=== PATIENT | female | born 1955 | race Caucasian/White ===

== ENCOUNTER 2016-12-06 06:27 | Day surgery (SDC) | payer BC ==
[~2016-12-06 06:27] MED LIST: Dextrose 5%-0.45% NaCl 1,000 ML IV SCH; Midazolam 1 MG/ML 2 ML SDV ONE; Sodium Chloride 0.9% 10 ML Syringe FLUSH PRN; fentaNYL 100 MCG/2 ML SDV ONE
[2016-12-06] MEDS ORDERED: fentaNYL 100 MCG/2 ML SDV IV ONE ×3 (07:38→14:55)
[2016-12-06] MEDS ORDERED: Midazolam 1 MG/ML 2 ML SDV IV ONE ×3 (07:39→14:55)
--- NOTE | 2016-12-06 12:23 | LETTER ---
12/06/2016 Brando Guerrero MD [facility] [address] [place] [address], [place] [id number] RE: SAMARIA CAMARGO : [address] Guerrero: Ms. Samaria Saldaña had esophagogastroduodenoscopy done this morning and she tolerated the procedure well. I herewith send a copy of the endoscopy note and photographs for your review. Thank you. Sincerely, [facility] /[id number]
[2016-12-06 12:39] VITALS: BP 113/64
--- NOTE | 2016-12-06 13:11 | OR ---
DATE: 12/06/2016 PROCEDURE: Esophagogastroduodenoscopy and multiple pinch biopsies. INSTRUMENT USED: GIF-H180 Olympus video panendoscope. PREMEDICATIONS: Fentanyl 100 mcg intravenous, Versed 2 mg intravenous. The procedure was done under pulse oximetry, BP recording, and fish worm grower. INDICATION: The patient with chest pain as well as dysphagia, status post LINX placement. Esophagogastroduodenoscopy is performed for detection of any active erosive lesions, H. pylori status to be determined, endoscopic hemostasis therapy if needed. DESCRIPTION OF PROCEDURE: The scope was passed with ease. Adequate visualization of the esophagus was made from proximal to distal areas. No upper esophageal lesions identified. No distal esophageal stricture. No uphill or downhill esophageal varices. No Latonia-Hannah tear. No evidence of erosive esophagitis by [place] criteria. No esophageal polyp or tumor mass identified. Z-line was seen at around 40 cm distal to the oral verge, configuration consistent with grade 1 by ZAP classification. No proximal gastric varices noted. Gastric fundus examination by retroflexion showed no polypoid lesions. No gastric ulcer, malignant mass, or vascular ectasia identified. Patchy erythema with erosions were noted in the gastric antrum. Multiple pinch biopsies were taken from the gastric antrum and proximal body and sent for PyloriTek test for H. pylori, and if negative in an hour, tissue is to be sent for histopathology. Duodenal bulb showed no ulcer. Visualized second part of the duodenum was unremarkable. Photographs were taken of the duodenal bulb, gastric antrum, fundus, and distal esophagus. No bleeding was noted from any of the visualized areas at the completion of examination. IMPRESSION: Gastric antral erosions. The patient tolerated the procedure well. [facility] /[id number]
== END 2016-12-06 09:52 | disposition home or self-care (01) ==
LOC: DL.ENDO 06:27
PROVIDERS: ATTEND Internal Medicine Gastroenterology
DX: K29.50 Unspecified chronic gastritis without bleeding (principal); E66.9 Obesity, unspecified; E78.5 Hyperlipidemia, unspecified; K21.9 Gastro-esophageal reflux disease without esophagitis; R73.9 Hyperglycemia, unspecified; Z90.49 Acquired absence of other specified parts of digestive tract; Z79.899 Other long term (current) drug therapy; Z98.890 Other specified postprocedural states
CPT/HCPCS: 43239; 87077; J2250; J3010; J7042

== ENCOUNTER 2017-02-27 05:16 | Emergency (ER) | payer BC ==
[2017-02-27] MEDS ORDERED: Sodium Chloride 0.9% 1,000 ML IV ONE ×2 (05:31→09:32)
--- NOTE | 2017-02-27 05:36 | EDM.PDOC ---
<Vijay Noriega - Last Filed: 02/27/17 05:45> ED HPI GENERAL MEDICAL PROBLEM - General Chief Complaint: General Stated Complaint: AMBULANCE Time Seen by Provider: 02/27/17 05:31 Source of Information: Reports: Patient, EMS, Family History Limitations: Reports: No Limitations - History of Present Illness INITIAL COMMENTS - FREE TEXT/NARRATIVE: pt states hadn't been feeling well all day with no appetite body aches almost like flu felt constipated, took alkazelksa and felt somewhat better. only ate some noodles at lunch time, germán got up to go to b'room was on commode then woke up on floor with spouse yelling at her trying to wake her up. denies head- neck pain, spouse states found pt lying on floor unconscious, went to try to wake her up then she started shaking upper body like a seizure lasting 1- 2minutes then stopped and she felt hot and was sweating then went to get some ice for her then noticed she was like freezing cold, then pt quickly woke up and asked what happened. EMS arrived pt alert coherent not see any signs of blood or bleeding. pt c/o low abd' pain feels like wanting to poop in order to feel better. denies h/o head injury or seizures. - Related Data Allergies Allergy/AdvReac Type Severity Reaction Status Date / Time No Known Allergies Allergy Verified 02/27/17 05:45 Home Meds: Home Meds Cholecalciferol (Vitamin D3) [Vitamin D3] 1 tab PO DAILY 12/03/16 [History] Cyanocobalamin (Vitamin B-12) [B-12] 1 tab SL DAILY 12/03/16 [History] Fluticasone Propionate [Flonase] 1 spray INH BID PRN 12/03/16 [History] Loratadine 1 tab PO DAILY 12/03/16 [History] Simvastatin [Simvastatin] 1 tab PO BEDTIME 12/03/16 [History] Omeprazole 1 cap PO DAILY 02/27/17 [History] Past Medical History HEENT History: Reports: Sinusitis Cardiovascular History: Reports: High Cholesterol Respiratory History: Reports: Other (See Below) Other Respiratory History: CARIAS lung disease Gastrointestinal History: Reports: GERD, Hepatitis Other Gastrointestinal History: hepatitis a Genitourinary History: Reports: None INFORMATION TECHNOLOGY OFFICER History: Reports: None Musculoskeletal History: Reports: Other (See Below) Other Musculoskeletal History: degenerative joint disease Neurological History: Reports: None Psychiatric History: Reports: None Endocrine/Metabolic History: Reports: None Hematologic History: Reports: Anemia, Iron Deficiency Immunologic History: Reports: None Oncologic (Cancer) History: Reports: None Dermatologic History: Reports: None - Infectious Disease History Infectious Disease History: Reports: Chicken Pox, Hepatitis A, Mumps - Past Surgical History HEENT Surgical History: Reports: None Cardiovascular Surgical History: Reports: None Respiratory Surgical History: Reports: Other (See Below) Other Respiratory Surgeries/Procedures: pulmonary lung test GI Surgical History: Reports: Appendectomy, EGD, Other (See Below) Other GI Surgeries/Procedures: Linx procedure Female Surgical History: Reports: Breast Reduction Musculoskeletal Surgical History: Reports: Carpal Tunnel, Knee Replacement, Other (See Below) Other Musculoskeletal Surgeries/Procedures:: multiple joint procedures, back surg Social & Family History - Tobacco Use Smoking Status *Q: Never Smoker Years of Tobacco use: 5 Used Tobacco, but Quit: Yes Month Tobacco Last Used: 30 Second Hand Smoke Exposure: No - Caffeine Use Caffeine Use: Reports: Coffee Other Caffeine Use: 2 cups daily - Alcohol Use Days Per Week of Alcohol Use: 1 Number of Drinks Per Day: 1 Total Drinks Per Week: 1 - Recreational Drug Use Recreational Drug Use: No ED ROS GENERAL - Review of Systems Review Of Systems: ROS reveals no pertinent complaints other than HPI. ED EXAM, GENERAL - Physical Exam Exam: See Below Exam Limited By: No Limitations General Appearance: Alert, WD/WN, Mild Distress, Other (distraught) Eye Exam: Bilateral Eye: PERRL (pupils ER @ 4mm) Ears: Hearing Grossly Normal Throat/Mouth: Normal Voice, No Airway Compromise Respiratory/Chest: No Respiratory Distress, Lungs Clear, Normal Breath Sounds Cardiovascular: Regular Rate, Rhythm GI/Abdominal: Soft, Non-Tender, Other (BS hyper, mild slow abd' discomfort, ). No: Distended, Guarding, Rigid, Rebound Neurological: Alert, Oriented, Normal Cognition, Normal Gait, No Motor/Sensory Deficits Psychiatric: Normal Affect, Normal Mood Skin Exam: Warm, Dry, Normal Color Lymphatic: No Adenopathy Course - Vital Signs Last Recorded V/S: Last Vital Signs Temp 98.5 F 02/27/17 09:28 Pulse 84 02/27/17 12:00 Resp 16 02/27/17 09:28 BP 105/51 L 02/27/17 12:00 Pulse Ox 96 02/27/17 09:28 - Orders/Labs/Meds Orders: Active Orders 24 hr Category Date Time Status EKG 12 Lead [EKG Documentation Completion] [RC] STAT Care 02/27/17 05:29 Active CULTURE STREP A CONFIRMATION [RM] Stat Lab 02/27/17 05:26 Results STREP SCRN A RAPID W CULT CONF [RM] Stat Lab 02/27/17 05:26 Results Labs: Laboratory Tests 02/27/17 02/27/17 02/27/17 Range/Units 05:30 05:30 05:30 WBC 12.7 H (5.0-10.0) 10^3/uL RBC 3.79 L (4.2-5.4) 10^6/uL Hgb 10.4 L (12.0-16.0) g/dL Hct 33.0 L (37.0-47.0) % MCV 87.1 (80-100) fL MCH 27.4 (27.0-34.0) pg MCHC 31.5 L (33.0-35.0) g/dL Plt Count 191 (150-450) 10^3/uL Neut % (Auto) 83.4 H (42.2-75.2) % Lymph % (Auto) 9.7 L (20.5-50.1) % [place] % (Auto) 6.8 (2-8) % Eos % (Auto) 0.0 L (1.0-3.0) % Baso % (Auto) 0.1 (0.0-1.0) % Sodium 138 (135-145) mmol/L Potassium 3.7 (3.6-5.0) mmol/L Chloride 101 (101-111) mmol/L Carbon Dioxide 25.0 (21.0-31.0) mmol/L Anion Gap 15.7 BUN 11 (7-18) mg/dL Creatinine 0.8 (0.6-1.3) mg/dL Est Cr Clr Drug Dosing 68.26 mL/min Estimated GFR (MDRD) > 60 BUN/Creatinine Ratio 13.75 Glucose 147 H (74-105) mg/dL Lactic Acid 1.2 (0.5-2.2) mmol/L Calcium 9.1 (8.4-10.2) mg/dl Total Bilirubin 0.6 (0.2-1.0) mg/dL AST 37 (10-42) IU/L ALT 36 (10-60) IU/L Alkaline Phosphatase 76 (42-121) IU/L Troponin I < 0.02 (0.00-0.02) ng/ml Total Protein 8.1 (6.7-8.2) g/dl Albumin 3.8 (3.2-5.5) g/dl Globulin 4.3 Albumin/Globulin Ratio 0.88 Amylase 79 (28-100) U/L Lipase 22 (22-51) U/L Urine Color (YELLOW) Urine Appearance (CLEAR) Urine pH (5.0-9.0) Ur Specific [place] (1.005-1.030) Urine Protein (NEGATIVE) Urine Glucose (UA) (NEGATIVE) Urine Ketones (NEGATIVE) Urine Occult Blood (NEGATIVE) Urine Nitrite (NEGATIVE) Urine Bilirubin (NEGATIVE) Urine Urobilinogen (0.2-1.0) mg/dL Ur Leukocyte Esterase (NEGATIVE) Urine RBC /HPF Urine WBC (0-5/HPF) /HPF Ur Epithelial Cells /HPF Urine Bacteria (0-FEW/HPF) /HPF Urine Mucus /LPF 02/27/17 Range/Units 08:37 WBC (5.0-10.0) 10^3/uL RBC (4.2-5.4) 10^6/uL Hgb (12.0-16.0) g/dL Hct (37.0-47.0) % MCV (80-100) fL MCH (27.0-34.0) pg MCHC (33.0-35.0) g/dL Plt Count (150-450) 10^3/uL Neut % (Auto) (42.2-75.2) % Lymph % (Auto) (20.5-50.1) % [place] % (Auto) (2-8) % Eos % (Auto) (1.0-3.0) % Baso % (Auto) (0.0-1.0) % Sodium (135-145) mmol/L Potassium (3.6-5.0) mmol/L Chloride (101-111) mmol/L Carbon Dioxide (21.0-31.0) mmol/L Anion Gap BUN (7-18) mg/dL Creatinine (0.6-1.3) mg/dL Est Cr Clr Drug Dosing mL/min Estimated GFR (MDRD) BUN/Creatinine Ratio Glucose (74-105) mg/dL Lactic Acid (0.5-2.2) mmol/L Calcium (8.4-10.2) mg/dl Total Bilirubin (0.2-1.0) mg/dL AST (10-42) IU/L ALT (10-60) IU/L Alkaline Phosphatase (42-121) IU/L Troponin I (0.00-0.02) ng/ml Total Protein (6.7-8.2) g/dl Albumin (3.2-5.5) g/dl Globulin Albumin/Globulin Ratio Amylase (28-100) U/L Lipase (22-51) U/L Urine Color Yellow (YELLOW) Urine Appearance Clear (CLEAR) Urine pH 8.0 (5.0-9.0) Ur Specific [place] 1.015 (1.005-1.030) Urine Protein Negative (NEGATIVE) Urine Glucose (UA) Negative (NEGATIVE) Urine Ketones Trace H (NEGATIVE) Urine Occult Blood Negative (NEGATIVE) Urine Nitrite Negative (NEGATIVE) Urine Bilirubin Negative (NEGATIVE) Urine Urobilinogen 0.2 (0.2-1.0) mg/dL Ur Leukocyte Esterase Negative (NEGATIVE) Urine RBC Not seen /HPF Urine WBC 0-5 (0-5/HPF) /HPF Ur Epithelial Cells Rare /HPF Urine Bacteria Not seen (0-FEW/HPF) /HPF Urine Mucus Not seen /LPF Meds: Medications Discontinued Medications Generic Name Dose Route Start Last Admin Trade Name Freq PRN Reason Stop Dose Admin Hydrocodone Bitart/Acetaminophen 1 tab 02/27/17 11:38 [place] 325-5 Mg PO ONETIME PRN Pain Ciprofloxacin 500 mg 02/27/17 07:38 02/27/17 08:03 Ciprofloxacin Hcl PO 02/27/17 07:39 500 mg ONETIME ONE Administration Sodium Chloride 1,000 mls @ 500 mls/hr 02/27/17 05:31 02/27/17 05:36 Normal Saline IV 02/27/17 07:30 500 mls/hr .BOLUS ONE Administration Sodium Chloride 1,000 mls @ 999 mls/hr 02/27/17 09:32 02/27/17 09:40 Normal Saline IV 02/27/17 10:32 999 mls/hr .BOLUS ONE Administration Iopamidol 75 ml 02/27/17 05:58 02/27/17 07:01 Isovue-300 (61%) IVPUSH 02/27/17 05:59 75 ml ONETIME ONE Administration Metronidazole 500 mg 02/27/17 07:38 02/27/17 07:59 Metronidazole PO 02/27/17 07:39 500 mg ONETIME ONE Administration Morphine Sulfate 4 mg 02/27/17 07:46 02/27/17 07:57 Morphine IVPUSH 02/27/17 07:47 4 mg ONETIME ONE Administration Ondansetron HCl 4 mg 02/27/17 07:46 02/27/17 07:56 Zofran IV 02/27/17 07:47 4 mg ONETIME ONE Administration Orphenadrine Citrate 60 mg 02/27/17 09:45 02/27/17 09:44 Norflex IM 60 mg Q12H ELDON Administration Departure - Departure Disposition: Home, Self-Care 01 Clinical Impression: Diverticulitis Qualifiers: Diverticulitis site: large intestine Diverticulitis bleeding: without bleeding Diverticulitis complication: unspecified complication status Qualified Code(s): K57.32 - Diverticulitis of large intestine without perforation or abscess without bleeding - Discharge Information Instructions: Diverticulitis Referrals: PCP,Unobtain [Primary Care Provider] - Forms: ED Department Discharge Additional Instructions: Do not take your Simvastatin while on the cipro ( 1 week). Follow up in 2-3 days with your PCP for re-evaluation. Return for worsening symptoms. Care Plan Goals: Meds: Flexeril 10 mg # 21 [place] 5mg #10 cipro 500 mg x 1 week flagyl 500 mg x 1 week <Rita Longoria - Last Filed: 02/27/17 18:19> Course - Re-Assessments/Exams Free Text/Narrative Re-Assessment/Exam: 02/27/17 07:48 Pt states that her upper back is hurting and fells like "it is taking my breath away". states that she fell onto the back earlier and the pain appears to be getting worse. Will CT thorax for evaluation 02/27/17 09:36 CT reveals no acute process. Pt continues to c/o of upper back pain 02/27/17 10:27 Pt with some relief of upper back pain. Palpable spasm to left lateral spine under scapula. mild massage with minimal relief attempted. BP at baseline after IV fluids. Will DC home with close follow up. 02/27/17 12:18 Monitored patient in extended ER due to dizziness with rising. Was able to tolerate diet and pain decreased and pt able to go home. Departure - Departure Time of Disposition: 10:43 Condition: Good
[2017-02-27 05:57] LABS: CHLORIDE,CL 101 mmol/L (101-111); SODIUM,NA 138 mmol/L (135-145)
[2017-02-27] MEDS ORDERED: Iopamidol 612 MG/ML 75 ML Bottle IVPUSH ONE (05:58)
[2017-02-27] MEDS ORDERED: Ciprofloxacin 500 MG Tab PO ONE (07:38)
[2017-02-27] MEDS ORDERED: metroNIDAZOLE 250 MG Tab PO ONE (07:38)
[2017-02-27] MEDS ORDERED: Morphine 4 MG/ML Syringe IVPUSH ONE (07:46)
[2017-02-27] MEDS ORDERED: Ondansetron 4 MG/2 ML SDV IV ONE (07:46)
[2017-02-27] MEDS ORDERED: Acetaminophen/HYDROcodone 325-5 MG Tab PO PRN (11:38)
[2017-02-27 12:09] VITALS: BP 105/51
--- NOTE | 2017-03-07 10:44 | EKG ---
02/27/2017- FESTUS CAMARGO - This is a 12-lead EKG showing normal sinus rhythm, ventricular rate 93 beats per minute. Normal MA interval, QRS duration, normal axis. No ST-T changes. [facility] /[id number]
== END 2017-02-27 13:59 | disposition home or self-care (01) ==
LOC: DL.ED 05:16
DX: K57.32 Diverticulitis of large intestine without perforation or abscess without bleeding (principal); K21.9 Gastro-esophageal reflux disease without esophagitis; Z86.2 Personal history of diseases of the blood and blood-forming organs and certain disorders involving the immune mechanism; Z98.890 Other specified postprocedural states; Z96.659 Presence of unspecified artificial knee joint; Z90.49 Acquired absence of other specified parts of digestive tract; Z87.891 Personal history of nicotine dependence; Z79.899 Other long term (current) drug therapy
CPT/HCPCS: 36415; 70450; 71250; 74177; 80053; 81001; 82150; 83605; 83690; 84484; 85025; 87081; 87430; 87804; 93005; 96361; 96372; 96374; 96375; 99285; A9270; J2270; J2360; J2405; J7030; Q9967

== ENCOUNTER 2020-11-03 19:41 | Emergency (ER) | payer MEDICARE, BC ==
[2020-11-03] MEDS ORDERED: Ondansetron 4 MG Tab.DIS PO ONE (19:42)
[2020-11-03] MEDS ORDERED: Sodium Chloride 0.9% 1,000 ML IV ONE (19:59)
[2020-11-03] MEDS ORDERED: Metoclopramide 10 MG/2 ML SDV IVPUSH ONE (20:23)
[2020-11-03 20:33] LABS: ANION GAP 13.1 mEq/L (7-13); CHLORIDE,CL 105 mmol/L (98-107); SODIUM,NA 143 mmol/L (136-145)
--- NOTE | 2020-11-03 20:52 | CT ---
PROCEDURE INFORMATION: Exam: CT Head Without Contrast Exam date and time: 11/03/2020 8:29 PM Age: 65 years old Clinical indication: Other: Confusion TECHNIQUE: Imaging protocol: Computed tomography of the head without contrast. Radiation optimization: All CT scans at this facility use at least one of these dose optimization techniques: automated exposure control; mA and/or kV adjustment per patient size (includes targeted exams where dose is matched to clinical indication); or iterative reconstruction. Other technique: STROKE PROTOCOL was implemented. COMPARISON: CT Head wo Cont 02/27/2017 6:32 AM FINDINGS: Brain: No acute hemorrhage. Unremarkable white matter. No mass effect. Cerebral ventricles: No ventriculomegaly. Paranasal sinuses: Visualized sinuses are unremarkable. No fluid levels. Mastoid air cells: Visualized mastoid air cells are well aerated. Bones/joints: Unremarkable. No acute fracture. Soft tissues: Unremarkable. IMPRESSION: No acute intracranial process. ASSESSMENT: ASPECTS ([place] Stroke Program Early CT Score) is 10.
--- NOTE | 2020-11-03 21:11 | EDM.PDOC ---
ED HPI GENERAL MEDICAL PROBLEM - General Chief Complaint: Neurological Problem Stated Complaint: AMBULANCE Time Seen by Provider: 11/03/20 19:55 Source of Information: Reports: Patient History Limitations: Reports: No Limitations - History of Present Illness INITIAL COMMENTS - FREE TEXT/NARRATIVE: ED via [facility] with report of "not feeling well" today. Spouse reports repeated vomiting today. Seemd confused tonight. Lying on bed and unsure how she got there. Last known well 10am this am. No reported weakness. Patient denies c/o of headache, dizziness, No sore throat, no cough, no abdominal pain, no diarhrea. Unsure how many emesis. Spouse reports at least 3 prior to calling EMS. Onset: Today - Related Data Allergies Allergy/AdvReac Type Severity Reaction Status Date / Time No Known Allergies Allergy Verified 11/03/20 19:59 Home Meds: Home Meds Cholecalciferol (Vitamin D3) [Vitamin D3] 1 tab PO DAILY 12/03/16 [History] Cyanocobalamin (Vitamin B-12) [B-12] 1 tab SL DAILY 12/03/16 [History] Fluticasone Propionate [Flonase] 1 spray INH BID PRN 12/03/16 [History] Loratadine 1 tab PO DAILY 12/03/16 [History] Simvastatin 1 tab PO BEDTIME 12/03/16 [History] Omeprazole 1 cap PO DAILY 02/27/17 [History] Hydroxychloroquine [Plaquenil] 11/03/20 [History] Past Medical History HEENT History: Reports: Sinusitis Cardiovascular History: Reports: High Cholesterol Respiratory History: Reports: Other (See Below) Other Respiratory History: CARIAS lung disease Gastrointestinal History: Reports: GERD, Hepatitis Other Gastrointestinal History: hepatitis a Genitourinary History: Reports: None W[employer] 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 Musculoskeletal History: Reports: Other (See Below) Other Musculoskeletal History: degenerative joint disease Neurological History: Reports: None Psychiatric History: Reports: None Endocrine/Metabolic History: Reports: None Hematologic History: Reports: Anemia, Iron Deficiency Immunologic History: Reports: None Oncologic (Cancer) History: Reports: None Dermatologic History: Reports: None - Infectious Disease History Infectious Disease History: Reports: Chicken Pox, Hepatitis A, Mumps - Past Surgical History HEENT Surgical History: Reports: None Other HEENT Surgeries/Procedures: reports an implant around throat. Cardiovascular Surgical History: Reports: None Respiratory Surgical History: Reports: Other (See Below) Other Respiratory Surgeries/Procedures: pulmonary lung test GI Surgical History: Reports: Appendectomy, EGD, Other (See Below) Other GI Surgeries/Procedures: Linx procedure Female Surgical History: Reports: Breast Reduction Musculoskeletal Surgical History: Reports: Carpal Tunnel, Knee Replacement, Other (See Below) Other Musculoskeletal Surgeries/Procedures:: multiple joint procedures, back surg Social & Family History - Tobacco Use Tobacco Use Status *Q: Never Tobacco User - Caffeine Use Caffeine Use: Reports: Coffee, Soda, Tea Other Caffeine Use: 2 cups daily - Recreational Drug Use Recreational Drug Use: No ED ROS GENERAL - Review of Systems Review Of Systems: Comprehensive ROS is negative, except as noted in HPI. - Physical Exam Exam: See Below Exam Limited By: No Limitations General Appearance: Alert, No Apparent Distress Eye Exam: Bilateral Eye: EOMI, PERRL (4mm) Ears: Normal External Exam, Hearing Grossly Normal Nose: Normal Inspection Throat/Mouth: Normal Inspection, Normal Lips, Normal Voice Head Exam: Atraumatic, Normocephalic Respiratory/Chest: No Respiratory Distress, Lungs Clear, Normal Breath Sounds Cardiovascular: Normal Peripheral Pulses, Regular Rate, Rhythm, No Edema GI/Abdominal: Normal Bowel Sounds, Soft, Non-Tender (Female) Exam: Normal External Exam Neuro Exam (Abbreviated): Alert, Oriented (person place confused day), CN II- XII Intact, Normal Reflexes, No Motor/Sensory Deficits, Memory Loss Recent Events Back Exam: Normal Inspection Extremities: Normal Inspection, Normal Range of Motion Psychiatric: Normal Affect Skin Exam: Warm, Dry, Intact, Normal Color #1 Interpretation EKG Date: 11/03/20 Time: 20:56 Rhythm: NSR Rate (Beats/Min): 96 [place]: Normal P-Wave: Present QRS: Normal QT: Normal Comparison: NA - No Prior EKG Course - Vital Signs Last Recorded V/S: Last Vital Signs Temp 99.3 F 11/03/20 19:52 Pulse 93 11/03/20 22:27 Resp 16 11/03/20 22:27 BP 133/69 11/03/20 22:27 Pulse Ox 97 11/03/20 22:27 - Orders/Labs/Meds Labs: Laboratory Tests 11/03/20 11/03/20 11/03/20 Range/Units 20:05 20:05 20:05 WBC 6.1 (5.0-10.0) 10^3/uL RBC 4.02 L (4.2-5.4) 10^6/uL Hgb 12.6 D (12.0-16.0) g/dL Hct 38.1 (37.0-47.0) % MCV 94.8 D (80-100) fL MCH 31.3 (27.0-34.0) pg MCHC 33.1 (33.0-35.0) g/dL Plt Count 147 L (150-450) 10^3/uL Neut % (Auto) 89.5 H (42.2-75.2) % Lymph % (Auto) 5.9 L (20.5-50.1) % [place] % (Auto) 3.9 (2-8) % Eos % (Auto) 0.5 L (1.0-3.0) % Baso % (Auto) 0.2 (0.0-1.0) % Sodium 143 (136-145) mmol/L Potassium 4.1 (3.5-5.1) mmol/L Chloride 105 (98-107) mmol/L Carbon Dioxide 29 (21-32) mmol/L Anion Gap 13.1 H (7-13) mEq/L BUN 12 (7-18) mg/dL Creatinine 0.81 (0.55-1.02) mg/dL Est Cr Clr Drug Dosing 49.74 mL/min Estimated GFR (MDRD) > 60 BUN/Creatinine Ratio 14.8 (No establ ref range) Glucose 107 H (70-99) mg/dL Lactic Acid 0.6 (0.4-2.0) mmol/L Calcium 8.0 L (8.5-10.1) mg/dL Total Bilirubin 0.3 (0.2-1.0) mg/dL AST 21 (15-37) U/L ALT 47 (14-59) U/L Alkaline Phosphatase 62 (46-116) U/L Troponin I < 0.017 (0.000-0.056) ng/mL B-Natriuretic Peptide 61 (0-100) pg/ml Total Protein 6.1 L (6.4-8.2) g/dL Albumin 3.0 L (3.4-5.0) g/dL Globulin 3.1 Albumin/Globulin Ratio 0.97 Amylase 62 (25-115) U/L Lipase 149 (73-393) U/L Urine Color (YELLOW) Urine Appearance (CLEAR) Urine pH (5.0-9.0) Ur Specific [employer] (1.005-1.030) Urine Protein (NEGATIVE) Urine Glucose (UA) (NEGATIVE) Urine Ketones (NEGATIVE) Urine Occult Blood (NEGATIVE) Urine Nitrite (NEGATIVE) Urine Bilirubin (NEGATIVE) Urine Urobilinogen (0.2-1.0) mg/dL Ur Leukocyte Esterase (NEGATIVE) Urine Opiates Screen (NEGATIVE) Ur Oxycodone Screen (NEGATIVE) Urine Methadone Screen (NEGATIVE) Ur Barbiturates Screen (NEGATIVE) U Tricyclic Antidepress (NEGATIVE) Ur Phencyclidine Scrn (NEGATIVE) Ur Amphetamine Screen (NEGATIVE) U Methamphetamines Scrn (NEGATIVE) Urine MDMA Screen (NEGATIVE) U Benzodiazepines Scrn (NEGATIVE) Urine Cocaine Screen (NEGATIVE) U Marijuana (THC) Screen (NEGATIVE) Ethyl Alcohol (0) mg/dL SARS-CoV-2 RNA (ANDREA) (NEGATIVE) 11/03/20 11/03/20 11/03/20 Range/Units 20:05 20:06 21:09 WBC (5.0-10.0) 10^3/uL RBC (4.2-5.4) 10^6/uL Hgb (12.0-16.0) g/dL Hct (37.0-47.0) % MCV (80-100) fL MCH (27.0-34.0) pg MCHC (33.0-35.0) g/dL Plt Count (150-450) 10^3/uL Neut % (Auto) (42.2-75.2) % Lymph % (Auto) (20.5-50.1) % [place] % (Auto) (2-8) % Eos % (Auto) (1.0-3.0) % Baso % (Auto) (0.0-1.0) % Sodium (136-145) mmol/L Potassium (3.5-5.1) mmol/L Chloride (98-107) mmol/L Carbon Dioxide (21-32) mmol/L Anion Gap (7-13) mEq/L BUN (7-18) mg/dL Creatinine (0.55-1.02) mg/dL Est Cr Clr Drug Dosing mL/min Estimated GFR (MDRD) BUN/Creatinine Ratio (No establ ref range) Glucose (70-99) mg/dL Lactic Acid (0.4-2.0) mmol/L Calcium (8.5-10.1) mg/dL Total Bilirubin (0.2-1.0) mg/dL AST (15-37) U/L ALT (14-59) U/L Alkaline Phosphatase (46-116) U/L Troponin I (0.000-0.056) ng/mL B-Natriuretic Peptide (0-100) pg/ml Total Protein (6.4-8.2) g/dL Albumin (3.4-5.0) g/dL Globulin Albumin/Globulin Ratio Amylase (25-115) U/L Lipase (73-393) U/L Urine Color Yellow (YELLOW) Urine Appearance Clear (CLEAR) Urine pH 8.0 (5.0-9.0) Ur Specific [employer] 1.015 (1.005-1.030) Urine Protein Negative (NEGATIVE) Urine Glucose (UA) Negative (NEGATIVE) Urine Ketones 15 H (NEGATIVE) Urine Occult Blood Negative (NEGATIVE) Urine Nitrite Negative (NEGATIVE) Urine Bilirubin Negative (NEGATIVE) Urine Urobilinogen 0.2 (0.2-1.0) mg/dL Ur Leukocyte Esterase Negative (NEGATIVE) Urine Opiates Screen (NEGATIVE) Ur Oxycodone Screen (NEGATIVE) Urine Methadone Screen (NEGATIVE) Ur Barbiturates Screen (NEGATIVE) U Tricyclic Antidepress (NEGATIVE) Ur Phencyclidine Scrn (NEGATIVE) Ur Amphetamine Screen (NEGATIVE) U Methamphetamines Scrn (NEGATIVE) Urine MDMA Screen (NEGATIVE) U Benzodiazepines Scrn (NEGATIVE) Urine Cocaine Screen (NEGATIVE) U Marijuana (THC) Screen (NEGATIVE) Ethyl Alcohol < 3 (0) mg/dL SARS-CoV-2 RNA (ANDREA) Negative (NEGATIVE) 11/03/20 Range/Units 21:09 WBC (5.0-10.0) 10^3/uL RBC (4.2-5.4) 10^6/uL Hgb (12.0-16.0) g/dL Hct (37.0-47.0) % MCV (80-100) fL MCH (27.0-34.0) pg MCHC (33.0-35.0) g/dL Plt Count (150-450) 10^3/uL Neut % (Auto) (42.2-75.2) % Lymph % (Auto) (20.5-50.1) % [place] % (Auto) (2-8) % Eos % (Auto) (1.0-3.0) % Baso % (Auto) (0.0-1.0) % Sodium (136-145) mmol/L Potassium (3.5-5.1) mmol/L Chloride (98-107) mmol/L Carbon Dioxide (21-32) mmol/L Anion Gap (7-13) mEq/L BUN (7-18) mg/dL Creatinine (0.55-1.02) mg/dL Est Cr Clr Drug Dosing mL/min Estimated GFR (MDRD) BUN/Creatinine Ratio (No establ ref range) Glucose (70-99) mg/dL Lactic Acid (0.4-2.0) mmol/L Calcium (8.5-10.1) mg/dL Total Bilirubin (0.2-1.0) mg/dL AST (15-37) U/L ALT (14-59) U/L Alkaline Phosphatase (46-116) U/L Troponin I (0.000-0.056) ng/mL B-Natriuretic Peptide (0-100) pg/ml Total Protein (6.4-8.2) g/dL Albumin (3.4-5.0) g/dL Globulin Albumin/Globulin Ratio Amylase (25-115) U/L Lipase (73-393) U/L Urine Color (YELLOW) Urine Appearance (CLEAR) Urine pH (5.0-9.0) Ur Specific [employer] (1.005-1.030) Urine Protein (NEGATIVE) Urine Glucose (UA) (NEGATIVE) Urine Ketones (NEGATIVE) Urine Occult Blood (NEGATIVE) Urine Nitrite (NEGATIVE) Urine Bilirubin (NEGATIVE) Urine Urobilinogen (0.2-1.0) mg/dL Ur Leukocyte Esterase (NEGATIVE) Urine Opiates Screen Negative (NEGATIVE) Ur Oxycodone Screen Negative (NEGATIVE) Urine Methadone Screen Negative (NEGATIVE) Ur Barbiturates Screen Negative (NEGATIVE) U Tricyclic Antidepress Negative (NEGATIVE) Ur Phencyclidine Scrn Negative (NEGATIVE) Ur Amphetamine Screen Negative (NEGATIVE) U Methamphetamines Scrn Negative (NEGATIVE) Urine MDMA Screen Negative (NEGATIVE) U Benzodiazepines Scrn Negative (NEGATIVE) Urine Cocaine Screen Negative (NEGATIVE) U Marijuana (THC) Screen Negative (NEGATIVE) Ethyl Alcohol (0) mg/dL SARS-CoV-2 RNA (ANDREA) (NEGATIVE) Meds: Medications Discontinued Medications Generic Name Dose Route Start Last Admin Trade Name Manuel PRN Reason Stop Dose Admin Sodium Chloride 1,000 mls @ 200 mls/hr 11/03/20 19:59 11/03/20 20:42 Normal Saline IV 11/04/20 00:58 200 mls/hr .BOLUS ONE Administration Ceftriaxone Sodium 1 gm/ 50 mls @ 100 mls/hr 11/03/20 21:49 11/03/20 22:08 Sodium Chloride IV 11/03/20 22:18 100 mls/hr ONETIME ONE Administration Metoclopramide HCl 5 mg 11/03/20 20:23 11/03/20 20:42 Metoclopramide 10 Mg/2 Ml Sdv IVPUSH 11/03/20 20:24 5 mg ONETIME ONE Administration Ondansetron HCl Confirm 11/03/20 23:01 11/04/20 01:10 Ondansetron 4 Mg Tab.Dis Administered 11/03/20 23:02 Not Given Dose 12 mg .ROUTE .STK-MED ONE Ondansetron HCl 4 mg 11/03/20 19:42 Ondansetron 4 Mg Tab.Dis PO 11/03/20 19:43 .STK-MED ONE - Re-Assessments/Exams Free Text/Narrative Re-Assessment/Exam: Imaging unremarkable. Status improved with IVF. Departure - Departure Time of Disposition: 22:53 Disposition: Home, Self-Care 01 Condition: Good Clinical Impression: Gastroenteritis, Dehydration - Discharge Information *PRESCRIPTION DRUG MONITORING PROGRAM REVIEWED*: No *COPY OF PRESCRIPTION DRUG MONITORING REPORT IN PATIENT DAE: No Instructions: Dehydration, Adult, [id number] Referrals: Consuelo Aaron PA-C [Primary Care Provider] - Forms: ED Department Discharge Additional Instructions: zofran 4mg ODT one every 4 hours as needed for nausea/vomiting light activity No driving 24 hours bland diet start liquids small amounts advance slowly as tolerated Urgent follow up if noting weakness haylee slurring of speech facial droop or confusion recheck clinic 1-2 days Sepsis Event Note (ED) - Evaluation Sepsis Screening Result: No Definite Risk
--- NOTE | 2020-11-03 21:17 | CR ---
PROCEDURE INFORMATION: Exam: XR Chest Exam date and time: 11/03/2020 8:10 PM Age: 65 years old Clinical indication: Other: Confusion TECHNIQUE: Imaging protocol: XR of the chest. Views: 1 view. COMPARISON: No relevant prior studies available. FINDINGS: Lungs: Unremarkable. No consolidation. Pleural spaces: Unremarkable. No pleural effusion. No pneumothorax. Heart/Mediastinum: Unremarkable. No cardiomegaly. Bones/joints: Unremarkable. IMPRESSION: No acute findings.
[2020-11-03] MEDS ORDERED: cefTRIAXone 1 GM in Sodium Chloride 0.9% 50 ML IV ONE (21:49)
[2020-11-03 22:28] VITALS: BP 133/69; PULSE 93
[2020-11-03] MEDS ORDERED: Ondansetron 4 MG Tab.DIS ONE (23:01)
== END 2020-11-03 23:11 | disposition home or self-care (01) ==
LOC: DL.ED 19:41
DX: K52.9 Noninfective gastroenteritis and colitis, unspecified (principal); E86.0 Dehydration; K21.9 Gastro-esophageal reflux disease without esophagitis; Z79.899 Other long term (current) drug therapy; Z20.822 Contact with and (suspected) exposure to COVID-19
CPT/HCPCS: 36415; 70450; 71045; 80053; 80305-QW; 80307; 81003; 82150; 83605; 83690; 83880; 84484; 85025; 93005; 96365; 96375; 99285-25; A9270-GY; J0696; J2765; J7030; U0002

== ENCOUNTER 2022-09-05 16:46 | Emergency (ER) | payer MEDICARE, BC ==
[2022-09-05 16:58] VITALS: PULSE 78
[2022-09-05 18:12] LABS: ANION GAP 11.8 mEq/L (7-13)
[2022-09-05 18:21] VITALS: BP 147/70
== END 2022-09-05 19:32 | disposition home or self-care (01) ==
LOC: DL.ED 16:46
DX: I10 Essential (primary) hypertension (principal); E78.00 Pure hypercholesterolemia, unspecified; K21.9 Gastro-esophageal reflux disease without esophagitis; Z79.899 Other long term (current) drug therapy
CPT/HCPCS: 36415; 71045; 80053; 83735; 83880; 84443; 84484; 85025; 93005; 93010; 99284

== ENCOUNTER 2024-11-06 10:51 | Observation (INO) | payer MEDICARE, BC ==
[2024-11-06 11:07] LABS: BASOPHILS PERCENT AUTO 0.3 % (0.0-1.0); HEMATOCRIT 37.7 % (37.0-47.0); HEMOGLOBIN 12.5 g/dL (12.0-16.0); LYMPHOCYTES PERCENT AUTO 24.8 % (20.5-50.1); MEAN CORPUSCULAR HEMOGLOBIN 31.6 pg (27.0-34.0); MEAN CORPUSCULAR HGB CONC 33.2 g/dL (33.0-35.0); MEAN CORPUSCULAR VOLUME 95.4 fL (80-100); MONOCYTES PERCENT AUTO 5.3 % (2-8); NEUTROPHILS PERCENT AUTO 68.6 % (42.2-75.2); PLATELET COUNT,PLT 213 10^3/uL (150-450); RED BLOOD CELL COUNT 3.95 10^6/uL (4.2-5.4)
[2024-11-06 11:27] LABS: A/G RATIO 1.1; ALBUMIN 3.6 g/dL (3.4-5.0); ANION GAP 13.1 mEq/L (7-13); BILIRUBIN TOTAL 0.4 mg/dL (0.2-1.0); BUN/CREATININE RATIO 12.8 (No establ ref range); CALCIUM 9.3 mg/dL (8.5-10.1); CREATININE 0.94 mg/dL (0.55-1.02); EST CRCL DRUG DOSING (CG) 40.57 mL/min; MAGNESIUM 1.9 mg/dL (1.8-2.4); POTASSIUM,K 4.1 mmol/L (3.5-5.1); PROTEIN TOTAL,TP 6.9 g/dL (6.4-8.2)
[2024-11-06 11:31] LABS: LACTIC ACID 1.7 mmol/L (0.4-2.0)
[2024-11-06] MEDS: Bisacodyl 10 MG Supp RECTAL ONE (12:59)
[2024-11-06] MEDS: Benzocaine/Docusate Sodium 20-283 MG/5 ML Enema RECTAL ONE (13:05)
[2024-11-06] MEDS: Glycerin Adult 2 GM Supp RECTAL ONE (13:50)
[2024-11-06] MEDS: Sodium Chloride 0.9% 1,000 ML IV ONE (14:28)
[2024-11-06] MEDS: Sodium Chloride 0.9% 1,000 ML IV SCH (16:37)
[2024-11-06] MEDS: Lactulose Soln 10 GM/15 ML 30 ML UD Cup PO ONE (20:23)
[2024-11-06] MEDS: Tamsulosin 0.4 MG Cap.ER PO ONE (20:23)
[2024-11-06] MEDS: Ibuprofen 400 MG Tab PO ONE (20:24)
[2024-11-06] MEDS: Acetaminophen 500 MG Tab PO ONE (20:24)
[2024-11-06] MEDS ORDERED: Witch Hazel Medicated Pads 100/Jar TOP PRN (21:51)
[2024-11-07 07:17] LABS: ANION GAP 15.1 mEq/L (7-13); CALCIUM 9.3 mg/dL (8.5-10.1); CREATININE 0.76 mg/dL (0.55-1.02); EST CRCL DRUG DOSING (CG) 50.18 mL/min; POTASSIUM,K 4.1 mmol/L (3.5-5.1)
[2024-11-07 11:39] VITALS: BP 109/69; PULSE 82
== END 2024-11-07 12:35 | disposition home or self-care (01) ==
LOC: DL.ED 10:51 → DL.MS 17:31 → DL.ED 17:48
PROVIDERS: ADMIT Internal Medicine; ATTEND Internal Medicine
DX: R10.9 Unspecified abdominal pain (principal); R14.0 Abdominal distension (gaseous); I10 Essential (primary) hypertension; E78.00 Pure hypercholesterolemia, unspecified; K21.9 Gastro-esophageal reflux disease without esophagitis; Z79.899 Other long term (current) drug therapy
CPT/HCPCS: 36415; 51798; 74174; 80048; 80053; 83605; 83735; 85025; 96360; 96361; 99222; 99239; 99285-25; A9270-GY; J7030